=== PATIENT | male | born 1960 | race Caucasian/White ===

== ENCOUNTER 2022-09-17 19:43 | Emergency (ER) | payer OTHER ==
[2022-09-17 20:42] LABS: ANION GAP 12.4 mmol/L (5-15)
[2022-09-17] MEDS ORDERED: Albuterol/Ipratropium 3.0-0.5 MG/3 ML Neb Soln NEB ONE (20:51)
[2022-09-17 21:32] LABS: RESPIRATORY SYNCYTIAL VIR NAA POSITIVE (NEGATIVE)
[2022-09-17 21:38] LABS: CORONAVIRUS COVID-19 NAA NEGATIVE (NEGATIVE)
[2022-09-17] MEDS ORDERED: cefTRIAXone 1 GM Vial IVPUSH ONE (21:56)
[2022-09-17] MEDS ORDERED: Albuterol 0.083% 2.5 MG/3 ML Neb Soln NEB ONE (22:21)
== END 2022-09-17 22:25 | disposition home or self-care (01) ==
LOC: KA.ED 19:43
DX: J18.9 Pneumonia, unspecified organism (principal); J40 Bronchitis, not specified as acute or chronic; B97.4 Respiratory syncytial virus as the cause of diseases classified elsewhere; Z88.0 Allergy status to penicillin; Z91.040 Latex allergy status; Z91.013 Allergy to seafood; Z20.822 Contact with and (suspected) exposure to COVID-19
CPT/HCPCS: 0241U; 36415; 71046; 80053; 83605; 85025; 94640; 96374; 99284; J0696; J7613-GY; J7620-GY